=== PATIENT | female | born 1955 | race Two or more races ===

== ENCOUNTER 2018-06-05 14:39 | Emergency (ER) | payer MEDICAID ==
[~2018-06-05] VITALS: Ht 157.5 cm; Wt 82.0 kg
[~2018-06-05 14:39] MED LIST: AMLO5TAB4 PO; ASPI-518 PO; ATEN50TA PO; HYDR-523 PO; LORAZEPAM; OMEP20CA4 PO; VICODIN
[2018-06-05 14:47] VITALS: BP 154/63
== END 2018-06-05 19:00 | disposition left against medical advice (07) ==
LOC: ER 17:46
DX: Z53.21 Procedure and treatment not carried out due to patient leaving prior to being seen by health care provider (principal); I00 Rheumatic fever without heart involvement; Z88.5 Allergy status to narcotic agent; Z90.710 Acquired absence of both cervix and uterus
CPT/HCPCS: 93005